=== PATIENT | female | born 1950 | race Caucasian/White ===

== ENCOUNTER 2025-04-20 14:39 | Emergency (ER) | payer OTHER ==
[~2025-04-20] VITALS: Ht 162.6 cm; Wt 79.0 kg
--- NOTE | 2025-04-20 14:59 | ED.PDOC ---
History of Present Illness HPI Comments 74-year-old female presents to the ER with a prior medical history of prediabetic, high lipids, left knee surgery 10 years ago, right knee surgery- November 2024 with a chief complaint of palpitations. Patient reports on having bruising on the right lower extremity status post the knee surgery in November. Patient states on having palpitations for 1 hour with no chest pain but had shortness of breath, all happening since this morning. Patient notes on being lightheaded as well, earlier today. Denies chills, fever, N/V/D, CP. No other associated symptoms, modifiers, recent injuries or sick contacts present at this time. 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 Family History Family History: Reviewed,noncontributory to illness, Unknown Social History Smoker: Non-Smoker Alcohol: Denies ETOH Use Drugs: Denies Drug Use Lives In: Home Constitutional: reports: others; denies: chills, diaphoresis, fatigue, fever, malaise, sweats, weakness EENTM: denies: blurred vision, double vision, ear bleeding, ear discharge, ear drainage, ear pain, ear ringing, eye pain, eye redness, hearing loss, mouth pain, mouth swelling, nasal discharge, nose bleeding, nose congestion, nose pain, photophobia, tearing, throat pain, throat swelling, voice changes, others Respiratory: reports: shortness of breath; denies: cough, hemoptysis, orthopnea, SOB at rest, SOB with excertion, stridor, wheezing, others Cardiovascular: reports: palpitations; denies: chest pain, dizzy spells, diaphoresis, Dyspnea on exertion, edema, irregular heart beat, left arm pain, lightheadedness, PND, syncope, others Gastrointestinal: denies: abdomen distended, abdominal pain, blood streaked bowels, constipated, diarrhea, dysphagia, difficulty swallowing, hematemesis, melena, nausea, poor appetite, poor fluid intake, rectal bleeding, rectal pain, vomiting, others Genitourinary: denies: abnormal vagina bleeding, burning, dyspareunia, dysuria, flank pain, frequency, hematuria, incontinence, pain, , vagina discharge, urgency, others Neurological: denies: dizziness, fainting, headache, left sided numbness, left sided weakness, numbness, paresthesia, pre-existing deficit, right sided numbness, right sided weakness, seizure, speech problems, tingling, tremors, weakness, others Musculoskeletal: denies: back pain, gout, joint pain, joint swelling, muscle pain, muscle stiffness, neck pain, others Integumetry: denies: bruises, change in color, change in hair/nails, dryness, laceration, lesions, lumps, rash, wounds, others Allergic/Immunocompromised: denies: Difficulty Healing, Frequent Infections, H ngoc, Itching, others Hematologic/Lymphatic: denies: anemia, blood clots, easy bleeding, easy bruising, swollen glands, others Endocrine: denies: excessive hunger, excessive sweating, excessive thirst, excessive urination, flushing, intolerance to cold, intolerance to heat, unexplained weight gain, unexplained weight loss, others Psychiatric: denies: anxiety, bipolar disorder, depression, hopeless, panic disorder, schizophrenia, sleepless, suicidal, others All Other Systems: Reviewed and Negative Physical Exam General Appearance: No Apparent Distress, Normal HEENT: Normal ENT Inspection, Pharynx Normal, TMs Normal Neck: Full Range of Motion, Non-Tender, Normal, Normal Inspection Respiratory: Chest Non-Tender, Lungs Clear, No Accessory Muscle Use, No Respiratory Distress, Normal Breath Sounds Cardiovascular: No Edema, No JVD, No Murmur, No Gallop, Normal Peripheral Pulses, Regular Rate/Rhythm Breast Exam: Deferred Gastrointestinal: No Organomegaly, Non Tender, No Pulsatile Mass, Normal Bowel Sounds, Soft Genitalia: Deferred Pelvic: Deferred Rectal: Deferred Extremities: No calf tenderness, Normal capillary refill, Normal inspection, Normal range of motion, Non-tender, No pedal edema Musculoskeletal : Apperance: Normal Neurologic: Alert, 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 Was a procedure done?: No EKG EKG : Pulse Rate (adult): 138 Pegram: Normal Cardiac Rhythm: Afib Block: None Hypertrophy: None ST: Normal Differential Dx Considerations may include: atrial fibrillation, atrial flutter, svt, sinus arrhythmia, vt, anxiety, acs, electrolyte disorders X-Ray, Labs, Meds, VS Vital Signs Date Time Temp Pulse Resp B/P (MAP) Pulse Ox O2 Delivery O2 Flow Rate FiO2 04/20/25 17:30 77 12 141/84 (103) 97 04/20/25 16:00 88 04/20/25 15:40 87 04/20/25 15:26 98.8 113 17 153/96 (115) 97 98.8 04/20/25 15:26 116 17 Room Air* 0 21 04/20/25 15:00 152/83 04/20/25 14:59 138 04/20/25 14:46 138 04/20/25 14:39 97.6 138 16 165/102 (123) 98 97.6 Lab Test 04/20/25 16:20 04/20/25 15:14 Range/Units Troponin I High Sensitivity 4 3 L </=34 ng/L White Blood Count 7.3 4.4-10.8 10^3/uL Red Blood Count 5.00 4.0-5.20 10^6/uL Hemoglobin 14.0 12.2-16.2 g/dL Hematocrit 42.5 36.0-46.0 % Mean Corpuscular Volume 85.0 80.0-100.0 fL Mean Corpuscular Hemoglobin 28.0 28.0-32.0 pg Mean Corpuscular Hemoglobin Concent 32.9 32.0-36.0 g/dL Red Cell Distribution Width 16.9 H 11.8-14.3 % Platelet Count 263 140-450 10^3/uL Mean Platelet Volume 7.4 6.9-10.8 fL Neutrophils (%) (Auto) 60.9 37.0-80.0 % Lymphocytes (%) (Auto) 30.6 10.0-50.0 % Monocytes (%) (Auto) 6.6 0.0-12.0 % Eosinophils (%) (Auto) 1.4 0.0-7.0 % Basophils (%) (Auto) 0.5 0.0-2.0 % Neutrophils # (Auto) 4.5 1.6-8.6 10 ^3/uL Lymphocytes # (Auto) 2.3 0.4-5.4 10 ^3/uL Monocytes # (Auto) 0.5 0-1.3 10 ^3/uL Eosinophils # (Auto) 0.1 0-0.8 10 ^3/uL Basophils # (Auto) 0 0-0.2 10 ^3/uL Nucleated Red Blood Cells 0.1 % Prothrombin Time 10.3 9.3-11.8 sec Prothrombin Time INR 0.97 0.9-1.15 Activated Partial Thromboplast Time 27.3 24.5-34.5 SEC Sodium Level 139 136-145 mmol/L Potassium Level 3.7 3.5-5.1 mmol/L Chloride Level 107 98-107 mmol/L Carbon Dioxide Level 21 20-31 mmol/L Anion Gap 11 5-15 Blood Urea Nitrogen 7 L 9-23 mg/dL Creatinine 0.70 0.550-1.02 mg/dL Glomerular Filtration Rate Calc 90 >90 mL/min BUN/Creatinine Ratio 10.0 10.0-20.0 Serum Glucose 138 H 74-106 mg/dL Calcium Level 9.2 8.7-10.4 mg/dL Total Bilirubin 0.8 0.2-1.0 mg/dL Aspartate Amino Transferase (AST) 25 13-40 U/L Alanine Aminotransferase (ALT) 24 7-40 U/L Alkaline Phosphatase 167 H 46-116 U/L Total Protein 7.6 5.7-8.2 g/dL Albumin 4.7 3.2-4.8 g/dL Current Medications Medications (Trade) Dose Ordered Sig/Kaylyn Route Start Time Stop Time Status Last Admin Enoxaparin Sodium (Lovenox) 60 mg ONCE ONCE SC 04/20/25 15:00 04/20/25 17:13 DC 04/20/25 15:34 Aspirin 325 mg ONCE ONCE PO 04/20/25 17:45 04/20/25 17:46 DC 04/20/25 18:01 Time of 1ST Reevaluation: 15:20 Reevaluation 1ST: Unchanged Time of 2ND Reevaluation: 16:42 Reevaluation 2ND: Improved Patient Education/Counseling: Diagnosis, Treatment, Prognosis, Need For Follow Up Family Education/Counseling: No Family Present Comments pt presented with new onset afib. she was converted to NSR without cardizem given, and has remained in NSR. she is now in NSR, with rate in the 80s. she has no symptoms once she converted. i do not feel she has a PE. she has no PE risk factors and has no symptoms once her HR was controlled. her US shows no DVT [facility] agrees and will have pt followed up with her PCP [facility] Sepsis Screen Physician Orders Chest Portable (04/20/25 14:49) Electrocardigram (04/20/25 17:49) Imaging Transfer Request (04/20/25 17:06) Rt Lower Dvt (04/20/25 17:13) Vital Signs Date Time Temp Pulse Resp B/P (MAP) Pulse Ox O2 Delivery O2 Flow Rate FiO2 04/20/25 17:30 77 12 141/84 (103) 97 04/20/25 16:00 88 04/20/25 15:40 87 04/20/25 15:26 98.8 113 17 153/96 (115) 97 98.8 04/20/25 15:26 116 17 Room Air* 0 21 04/20/25 15:00 152/83 04/20/25 14:59 138 04/20/25 14:46 138 04/20/25 14:39 97.6 138 16 165/102 (123) 98 97.6 Laboratory Tests Test 04/20/25 15:14 White Blood Count 7.3 10^3/uL (4.4-10.8) Medications Medications Dose Ordered Sig/Kaylyn Route Start Time Stop Time Status Last Admin Dose Admin Aspirin 325 mg ONCE ONCE PO 04/20/25 17:45 04/20/25 17:46 DC 04/20/25 18:01 Enoxaparin Sodium 60 mg ONCE ONCE SC 04/20/25 15:00 04/20/25 17:13 DC 04/20/25 15:34 Departure 1 Departure Time of Disposition: 19:28 Impression: Primary Impression: New onset a-fib Disposition: 01 HOME / SELF CARE / HOMELESS Condition: Good Additional Instructions: take one baby aspirin a day. your doctor will follow up with you this week Discharged With: Self Critical Care Note Critical Care Time?: Yes (55 min-critical care time only) Critical care comment: Due to concerns for patients condition deteriorating, the care required my highest level of attention and readiness to intervene. I assessed the patient, reviewed the medical records, ordered the appropriate tests and treatments, then reassessed for results and responsiveness. I communicated with medical personnel and consultants and formulated a plan of care. Total critical care time excludes any procedures Stability Stability form required: No I personally scribed for GALEN HAYS MD ([email or web address]) on 04/20/25 at 14:59. Electronically submitted by Harvinder Hampton ([email or web address]). GALEN HAYS MD Apr 20, 2025 14:59
[2025-04-20] MEDS: dilTIAZem 25 MG/5 ML VIAL IV ONE (15:00)
--- NOTE | 2025-04-20 15:25 | DVH ---
CHEST RADIOGRAPH Indication: palpitations Technique: Single frontal view of the chest was obtained COMPARISON: None FINDINGS: Lines and Tubes: None Lungs: Clear Pleura: No effusion. No pneumothorax. Cardiomediastinal contours: Unremarkable Bones: Unremarkable IMPRESSION: No acute disease.
[2025-04-20 15:26] VITALS: PULSE 116; RESP 17; TEMP 98.8
[2025-04-20] MEDS: ENOXAPARIN SOD 60 MG/0.6 ML SYRINGE SC ONE (15:34)
[2025-04-20 15:35] LABS: Hematocrit 42.5 % (36.0-46.0); Hemoglobin 14.0 g/dL (12.2-16.2); Mean Corpuscular Hemoglobin 28.0 pg (28.0-32.0); Mean Corpuscular Volume 85.0 fL (80.0-100.0); Nucleated Red Blood Cells % 0.1 %
[2025-04-20 15:48] LABS: Alanine Aminotransferase 24 U/L (7-40); Albumin 4.7 g/dL (3.2-4.8); Anion Gap 11 (5-15); BUN/Creatinine Ratio 10.0 (10.0-20.0); Bilirubin, Total 0.8 mg/dL (0.2-1.0); Calcium 9.2 mg/dL (8.7-10.4); Carbon Dioxide 21 mmol/L (20-31); Potassium 3.7 mmol/L (3.5-5.1); Sodium 139 mmol/L (136-145); Total Protein 7.6 g/dL (5.7-8.2)
[2025-04-20 15:50] LABS: Alkaline Phosphatase 167 U/L (46-116); Blood Urea Nitrogen 7 mg/dL (9-23); Chloride 107 mmol/L (98-107); Glucose 138 mg/dL (74-106)
[2025-04-20 15:55] LABS: INR 0.97 (0.9-1.15); Partial Thromboplastin Time 27.3 SEC (24.5-34.5); Prothrombin Time 10.3 sec (9.3-11.8)
--- NOTE | 2025-04-20 16:06 | ECG ---
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
--- NOTE | 2025-04-20 19:20 | DVH ---
RIGHT LOWER EXTREMITY VENOUS DOPPLER ULTRASOUND CLINICAL HISTORY: r/o dvt. Pain. COMPARISON: None TECHNIQUE: Grayscale ultrasound with compression, Color Doppler flow and duplex spectral Doppler son ography of the right lower extremity femoral popliteal deep venous system is performed. FINDINGS: Right common femoral vein: Negative. Right greater saphenous vein: Negative. Right deep femoral vein: Negative. Right femoral vein: Negative. Right popliteal vein: Negative. Other: The visualized popliteal trifurcation and posterior tibial vein demonstrate color flow. IMPRESSION: No sonographic evidence of deep venous thrombosis in the right lower extremity at this time.
--- NOTE | 2025-04-20 19:23 | ECG ---
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
[2025-04-20 20:05] VITALS: BP 153/78; PULSE 50; RESP 18; O2SAT 92
== END 2025-04-20 20:09 | disposition home or self-care (01) ==
LOC: ER 14:39
DX: I48.91 Unspecified atrial fibrillation (principal); E78.5 Hyperlipidemia, unspecified; Z79.899 Other long term (current) drug therapy
CPT/HCPCS: 36415; 71045; 80053; 84484; 85025; 85610; 85730; 93005; 93971; 96372; 99291; J1650